=== PATIENT | female | born 1950 | race Caucasian/White ===

== ENCOUNTER 2018-12-06 07:55 | Day surgery (SDC) | payer OTHER ==
[~2018-12-06 07:55] MED LIST: CARAFATE1 GM PO; GABAPENTIN100 MG PO; LIPITOR40 MG PO; NORVASC5 MG PO; PRILOSEC10 MG PO; PROAIR HFA8.5 GM IH; VASOTEC10 MG PO; VENTOLIN HFA18 GM IH; ZANAFLEX4 MG PO; ZANTAC300 MG PO
== END 2018-12-06 17:00 | disposition home or self-care (01) ==
LOC: CIR.AMB 07:55
DX: M50.23 Other cervical disc displacement, cervicothoracic region (principal)